=== PATIENT | male | born 1965 | race Caucasian/White ===

== ENCOUNTER 2017-06-03 21:53 | Emergency (ER) | payer OTHER, MEDICARE ==
[2017-06-03 22:24] VITALS: BP 125/79; PULSE 76; RESP 18; TEMP 98.4; O2SAT 93
[2017-06-03] MEDS ORDERED: HYDROmorphone HCL PF 1 MG/ML VIAL IV PUSH ONE (23:15)
[2017-06-03] MEDS ORDERED: KETOROLAC TROMETHAMINE 30 MG/ML (IVP) VIAL IV PUSH ONE (23:15)
[2017-06-04 00:01] VITALS: BP 141/88; PULSE 74; RESP 18; O2SAT 97
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
[2017-06-04] MEDS ORDERED: PRAV80TA2 PO (00:45)
[2017-06-04] MEDS ORDERED: GABA800T PO (00:45)
[2017-06-04] MEDS ORDERED: WARF-60 PO (00:45)
[2017-06-04] MEDS ORDERED: CIME400T PO (00:45)
[2017-06-04] MEDS ORDERED: AMIT150T PO (00:45)
[2017-06-04] MEDS ORDERED: TRAZ1TAB45 PO (00:45)
[2017-06-04] MEDS ORDERED: PANT40TA3 PO (00:45)
[2017-06-04] MEDS ORDERED: ATEN25TA PO (00:45)
[2017-06-04] MEDS ORDERED: QUET1TAB11 PO (00:45)
[2017-06-04] MEDS ORDERED: BUSP30TA PO (00:45)
[2017-06-04] MEDS ORDERED: KETOROLAC TROMETHAMINE 30 MG/ML (IVP) VIAL IV PUSH ONE (01:30)
[2017-06-04] MEDS ORDERED: HYDROmorphone HCL PF 1 MG/ML VIAL IV PUSH ONE (01:30)
[2017-06-04 02:26] VITALS: BP 128/87
== END 2017-06-04 02:27 | disposition home or self-care (01) ==
LOC: NEPE 21:53
DX: M54.5 Low back pain (principal); N20.0 Calculus of kidney; I10 Essential (primary) hypertension; F17.200 Nicotine dependence, unspecified, uncomplicated; Z79.01 Long term (current) use of anticoagulants; Z86.718 Personal history of other venous thrombosis and embolism; Z79.899 Other long term (current) drug therapy
CPT/HCPCS: 72131; 96374; 96375; 96376; 99285; J1170; J1885